=== PATIENT | female | born 1945 | race Caucasian/White ===

== ENCOUNTER 2018-12-20 09:04 | Day surgery (SDC) | payer MEDICARE, OTHER ==
[~2018-12-20 09:04] MED LIST: Lactated Ringers 1,000 ML IV SCH; Sodium Chloride 0.9% 10 ML Syringe FLUSH PRN
[2018-12-20] MEDS ORDERED: Ketorolac 30 MG/ML SDV IVPUSH ONE (10:24)
[2018-12-20] MEDS ORDERED: fentaNYL 100 MCG/2 ML SDV ONE (11:05)
[2018-12-20] MEDS ORDERED: Propofol 200 MG/20 ML SDV ONE ×2 (11:05→12:02)
[2018-12-20] MEDS ORDERED: Midazolam 1 MG/ML 2 ML SDV ONE (11:05)
[2018-12-20 12:38] VITALS: BP 160/101; PULSE 80
--- NOTE | 2018-12-20 13:02 | OR ---
DATE OF SURGERY: 12/20/2018. REFERRING PROVIDER: Dr. Sorensen. PRE-OPERATIVE DIAGNOSIS: Positive family history of colon polyps and colon cancer. Last colonoscopy was 2013. POST-OPERATIVE DIAGNOSES: 1. A 7 mm polyp at 20 cm, removed using hot snare. 2. Tortuous redundant colon. 3. Normal distal ilium. PROCEDURE: Colonoscopy with polypectomy x1 using hot snare. SURGEON: Delio Manning M.D. ANESTHESIA: Monitored anesthesia care. BOWEL PREP: Fair. Moderate suctioning was required. Crystal is a 73-year-old female, who was brought to the endoscopy suite after discussing risks and benefits of the procedure. Informed consent was obtained for conscious sedation and colonoscopy with or without biopsy and/or polypectomy. We also discussed possibility of missed lesions. Pre-procedure exam was unremarkable. IV, oxygen, and monitors were placed. The patient was placed in the left lateral decubitus position. Sedation was administered and a digital rectal exam was performed and was unremarkable. Colonoscope was passed into the rectum and slowly advanced all the way to the cecum. The patient did have a tortuous redundant colon requiring the patient repositioning on to her back along with some abdominal pressure. Cecum was viewed and photographed. Ileocecal valve was intubated and distal ileum was normal in appearance. The colonoscope was slowly withdrawn and the mucosa was closed observed in a direct circumferential manner. The ascending colon was unremarkable. The transverse colon was unremarkable. The descending colon was unremarkable. The sigmoid colon revealed a 7 mm polyp at 20 cm, which was removed using hot snare. Retroflexion was performed and rectal mucosa was unremarkable. Scope was removed. The patient tolerated the procedure well. The patient was monitored until that baseline status. Discharge instructions were reviewed and the patient was discharged in good condition. COMPLICATIONS: None. TOTAL TIME: 45 minutes. ESTIMATED BLOOD LOSS: None. RECOMMENDATIONS/FOLLOW-UP: We will await results of path report to determine ideal followup interval. I would like to kindly thank Dr. Sorensen for this referral. DMB: 12/20/2018 12:22:48 MODL: 12/20/2018 12:50:20 /[id number] MTDD
== END 2018-12-20 13:19 | disposition home or self-care (01) ==
LOC: VM.SDS 09:04
PROVIDERS: ATTEND Family Medicine
DX: Z12.11 Encounter for screening for malignant neoplasm of colon (principal); D12.5 Benign neoplasm of sigmoid colon; Q43.8 Other specified congenital malformations of intestine; I10 Essential (primary) hypertension; E78.00 Pure hypercholesterolemia, unspecified; E87.6 Hypokalemia; G43.909 Migraine, unspecified, not intractable, without status migrainosus; G89.29 Other chronic pain; M54.5 Low back pain; Z87.891 Personal history of nicotine dependence; Z88.0 Allergy status to penicillin; Z88.8 Allergy status to other drugs, medicaments and biological substances; Z80.0 Family history of malignant neoplasm of digestive organs; Z83.71 Family history of colonic polyps; Z79.899 Other long term (current) drug therapy
CPT/HCPCS: 00812; 45385; 88305; J1885; J2250; J2704; J3010; J7120; 45384

== ENCOUNTER → 2024-04-04 | Day surgery (SDC) | payer MEDICARE, OTHER ==
[~2024-04-04] MED LIST changes: +Propofol 200 MG/20 ML SDV ONE; -Sodium Chloride 0.9% 10 ML Syringe FLUSH PRN; +droPERidol 5 MG/2 ML SDV IVPUSH PRN
[2024-04-04] MEDS: Ondansetron 4 MG/2 ML SDV IV PRN (09:18)
[2024-04-04] MEDS: Lactated Ringers 1,000 ML IV SCH (09:18)
[2024-04-04 12:09] VITALS: BP 149/90; PULSE 68
== END ==
LOC: VM.SDS 08:58
PROVIDERS: ATTEND Family Medicine
DX: Z12.11 Encounter for screening for malignant neoplasm of colon (principal); Q43.8 Other specified congenital malformations of intestine; K64.9 Unspecified hemorrhoids; I10 Essential (primary) hypertension; E78.00 Pure hypercholesterolemia, unspecified; M06.00 Rheumatoid arthritis without rheumatoid factor, unspecified site; E87.6 Hypokalemia; G31.84 Mild cognitive impairment of uncertain or unknown etiology; M41.35 Thoracogenic scoliosis, thoracolumbar region; G89.29 Other chronic pain; M54.50 Low back pain, unspecified; M15.9 Polyosteoarthritis, unspecified; R32 Unspecified urinary incontinence; M85.89 Other specified disorders of bone density and structure, multiple sites; E16.2 Hypoglycemia, unspecified; M79.7 Fibromyalgia; Z80.0 Family history of malignant neoplasm of digestive organs; Z86.0101 Personal history of adenomatous and serrated colon polyps; Z79.899 Other long term (current) drug therapy; Z88.5 Allergy status to narcotic agent; Z88.8 Allergy status to other drugs, medicaments and biological substances; Z86.16 Personal history of COVID-19; Z87.891 Personal history of nicotine dependence
CPT/HCPCS: J2405; J2704; J7120